=== PATIENT | female | born 1955 | race Caucasian/White ===

== ENCOUNTER → 2016-08-22 | Outpatient (REF) | payer BC | LOC: M LAB REF 13:15 | PROVIDERS: ATTEND Internal Medicine Medical Oncology | DX: C50.919 Malignant neoplasm of unspecified site of unspecified female breast (principal) ==

== ENCOUNTER → 2016-12-18 | Outpatient (CLI) | payer BC ==
--- NOTE | 2016-12-19 07:20 | RADONC ---
RADIATION ONCOLOGY FOLLOWUP NOTE DATE: 12/18/2016 CHART NUMBER: [id number] DIAGNOSIS: Left breast cancer stage II A, T2N0M0. ECOG PERFORMANCE STATUS: 0. FOLLOWUP NOTE: Ms. Forrester is a very pleasant 61-year-old white female with the diagnosis of a Stage II A, T2N0M0 moderately differentiated invasive ductal carcinoma of the left breast who is presenting to us today for routine followup visit 9 years post completion of external beam radiation therapy. The patient presents today reporting that she is doing quite well with no complaints at this time related to her radiation therapy or disease. She has no breast or bone pain. REVIEW OF SYSTEMS: The patient's review of systems is noncontributory. Denies nausea, vomiting, fevers, chills, night sweats, diplopia, headaches, anxiety or depression, anorexia, weight loss, visual disturbances, chest pain, urinary or bowel difficulties, bone pain, or neurological problems. PHYSICAL EXAMINATION: The patient is a well-developed, well-nourished 61-year-old female in no acute distress. HEENT exam is normocephalic, atraumatic. Extraocular movements are intact. There is no palpable cervical, supraclavicular, infraclavicular, axillary, or inguinal lymphadenopathy present. Lungs are clear to auscultation and percussion. Heart has a regular rate and rhythm. Abdomen is benign with no hepatosplenomegaly, masses, or tenderness. Breast examination reveals no masses or discharge bilaterally. Skeletal examination reveals no tenderness to pressure or percussion of the bony skeleton. Extremities reveal no clubbing, cyanosis, or edema. Neurologic exam is grossly intact, as is the remainder of the physical examination. ASSESSMENT: The patient is clinically STEVEN at this time and will be seen by us again in 1 year for further followup. She will also continue to be followed by her other physicians as well. cc: Amy Adan MD *Mohan Rush MD
== END ==
LOC: M ONCR 14:55
PROVIDERS: ATTEND Radiology Radiation Oncology
DX: C50.912 Malignant neoplasm of unspecified site of left female breast (principal)

== ENCOUNTER → 2017-02-11 | Outpatient (REF) | payer BC | LOC: M LAB REF 13:59 | PROVIDERS: ATTEND Internal Medicine Medical Oncology | DX: C50.919 Malignant neoplasm of unspecified site of unspecified female breast (principal) ==

== ENCOUNTER → 2017-08-07 | Outpatient (REF) | payer BC | LOC: M LAB REF 13:37 | DX: C50.411 Malignant neoplasm of upper-outer quadrant of right female breast (principal) | CPT/HCPCS: 86300 ==

== ENCOUNTER → 2017-12-24 | Outpatient (CLI) | payer BC | LOC: M ONCR 14:55 | DX: C50.919 Malignant neoplasm of unspecified site of unspecified female breast (principal) ==

== ENCOUNTER → 2018-02-19 | Outpatient (REF) | payer BC ==
[2018-02-20 11:05] LABS: CA15-3 ANTIGEN 17.7 U/ML (<32.4)
== END ==
LOC: M LAB REF 17:30
DX: R92.1 Mammographic calcification found on diagnostic imaging of breast (principal)
CPT/HCPCS: 86300